=== PATIENT | male | born 1995 | race Caucasian/White ===

== ENCOUNTER 2020-02-02 22:40 | Emergency (ER) | payer OTHER ==
[~2020-02-02] VITALS: Ht 177.8 cm; Wt 77.2 kg
[2020-02-02] MEDS ORDERED: ZIPRASIDONE IM 20 MG VIAL. IM ONE (23:00)
[2020-02-02] MEDS ORDERED: chlorproMAZINE 50 MG/2 ML AMPUL IV ONE (23:10)
[2020-02-02] MEDS ORDERED: chlorproMAZINE IM 50 MG/2 ML AMPUL IM ONE (23:15)
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
[2020-02-03 00:35] LABS: BASO % 0 % (0-3); EOS % 0 % (0-3); LYMPH # 1.3 x10^3/uL (1.0-4.8); LYMPH % 9 % (24-48); MEAN CORPUSCULAR HEMOGLOBIN 31 pg (25-35); MEAN CORPUSCULAR HGB CONC 35 g/dL (31-37); MEAN CORPUSCULAR VOLUME 90 fL (79-100); MONO # 1.4 x10^3/uL (0.0-1.1); MONO % 9 % (0-9); NEUT % 82 % (31-73); PLATELET COUNT 212 x10^3/uL (140-400); RED BLOOD COUNT 4.46 x10^6/uL (4.30-5.70); RED CELL DISTRIBUTION WIDTH 11.7 % (11.5-14.5); WHITE BLOOD COUNT 14.7 x10^3/uL (4.0-11.0)
[2020-02-03 00:43] LABS: CALCIUM 8.7 mg/dL (8.5-10.1); CREATININE 1.4 mg/dL (0.7-1.3); GFR 63.4; POTASSIUM 3.1 mmol/L (3.5-5.1)
[2020-02-03 00:58] LABS: ALBUMIN 4.2 g/dL (3.4-5.0); ALBUMIN/GLOBULIN RATIO 1.5 (1.0-1.7); TOTAL BILIRUBIN 2.8 mg/dL (0.2-1.0)
[2020-02-03] MEDS ORDERED: IV NORMAL SALINE 1,000ML 1,000 ML IV ONE (01:30)
--- NOTE | 2020-02-03 01:43 | RAD ---
STUDY: CT head without contrast INDICATION: Altered mental status. COMPARISON: None. TECHNIQUE: Axial CT imaging through the head without the use of intravenous contrast. Sagittal and coronal reformats were obtained. One or more of the following individualized dose reduction techniques were utilized for this examination: 1. Automated exposure control 2. Adjustment of the mA and/or kV according to patient size 3. Use of iterative reconstruction technique. FINDINGS: No acute intracranial hemorrhage. Normal [place]-white matter interface. No mass effect, midline shift or hydrocephalus. Symmetric attenuation of the deep [place] nuclei. Unremarkable orbits. Rightward nasal septal deviation and a prominent rightward directed spur. Intact calvarium. Normally aerated mastoid air cells, middle ears and visualized paranasal sinuses. IMPRESSION: 1. No acute intracranial abnormality by CT. Electronically signed by: BERENICE GARCIA MD (02/03/2020 1:40 AM) [id number]
[2020-02-03 01:48] LABS: BARBITURATES NEG (NEG); BENZODIAZEPINES NEG (NEG); CANNABINOIDS NEG (NEG); COCAINE NEG (NEG); METHADONE NEG (NEG); OPIATES NEG (NEG); PHENCYCLIDINE NEG (NEG)
[2020-02-03 01:56] LABS: AMPHETAMINE/METHAMPHETAMINE NEG (NEG)
[2020-02-03 02:07] VITALS: BP 117/77
== END 2020-02-03 03:40 | disposition home or self-care (01) ==
LOC: ER 22:40 → EEVIPCON 22:40 → ER 02-03 03:40
DX: S61.412A Laceration without foreign body of left hand, initial encounter (principal); S00.212A Abrasion of left eyelid and periocular area, initial encounter; S60.812A Abrasion of left wrist, initial encounter; S60.811A Abrasion of right wrist, initial encounter; R46.89 Other symptoms and signs involving appearance and behavior; J45.909 Unspecified asthma, uncomplicated; E78.00 Pure hypercholesterolemia, unspecified; I10 Essential (primary) hypertension; G43.909 Migraine, unspecified, not intractable, without status migrainosus; W26.8XXA Contact with other sharp object(s), not elsewhere classified, initial encounter; Y93.89 Activity, other specified; Y92.89 Other specified places as the place of occurrence of the external cause; Y99.8 Other external cause status
CPT/HCPCS: 36415; 70450; 80053; 80307; 82550; 85025; 96360; 96372; 99284; J3230; J3486; J7030